=== PATIENT | female | born 1975 | race Caucasian/White ===

== ENCOUNTER 2021-01-13 21:10 | Emergency (ER) | payer OTHER ==
[~2021-01-13] VITALS: Ht 165.1 cm; Wt 72.6 kg
[2021-01-13 21:50] VITALS: BP 134/95
[2021-01-13] MEDS ORDERED: ALBUT2 CONTNEB (22:33)
[2021-01-13] MEDS ORDERED: CETI-90 PO (22:33)
[2021-01-13] MEDS ORDERED: INHA1EAC10 MC (22:33)
--- NOTE | 2021-01-13 22:51 | NUR ---
Patient discharged to home in stable condition. Written and verbal after care instructions given. Patient verbalizes understanding of instruction. Pt ambulatory with a steady gait
== END 2021-01-13 22:52 | disposition home or self-care (01) ==
LOC: ER 21:18
DX: J32.9 Chronic sinusitis, unspecified (principal); R05 Cough; Z88.6 Allergy status to analgesic agent

== ENCOUNTER 2024-03-02 11:42 | Emergency (ER) | payer MEDICAID, OTHER ==
[~2024-03-02] VITALS: Ht 165.1 cm; Wt 73.0 kg
[~2024-03-02 11:42] MED LIST: ALBUT2 CONTNEB; CETI-90 PO; INHA1EAC10 MC
[2024-03-02 12:23] LABS: BASOPHILS % (AUTO) 0.5 % (0.0-2.0); EOSINOPHILS # (AUTO) 0.1 K/uL (0.0-0.7); EOSINOPHILS % (AUTO) 1.1 % (0.0-6.0); HEMATOCRIT 46 % (33-45); HEMOGLOBIN 15.7 g/dL (11.5-14.8); LYMPHOCYTES # (AUTO) 1.5 K/uL (0.8-4.8); LYMPHOCYTES % (AUTO) 23.6 % (20.0-44.0); MEAN CORPUSCULAR HEMOGLOBIN 28 PG (26.0-33.0); MEAN CORPUSCULAR HGB CONC 34 g/dl (31.0-36.0); MEAN CORPUSCULAR VOLUME 84 fL (82-100); MONOCYTES # (AUTO) 0.5 K/uL (0.1-1.30); MONOCYTES % (AUTO) 8.1 % (2.0-12.0); NEUTROPHILS # (AUTO) 4.2 K/uL (1.8-8.9); NEUTROPHILS % (AUTO) 66.7 % (43.0-81.0); PLATELET COUNT (AUTO) 279 K/uL (150-450); RED BLOOD CELL COUNT(AUTO) 5.54 MIL/uL (4.0-5.2); RED CELL DISTRIBUTION WIDTH 12.3 % (11.5-15.0); WHITE BLOOD COUNT (AUTO) 6.3 K/uL (4.3-11.0)
[2024-03-02 12:31] LABS: CALCIUM, SERUM 9.3 mg/dL (8.5-10.1); CREATININE 1.2 mg/dL (0.6-1.3); POTASSIUM 3.6 mmol/L (3.5-5.1)
[2024-03-02] MEDS ORDERED: ONDANSETRON HCL/PF 4 MG/2 ML VIAL ONE (12:31)
[2024-03-02] MEDS ORDERED: KETOROLAC TROMETHAMINE 15 MG/ML VIAL ONE (12:32)
[2024-03-02] MEDS: IV NS 0.9% 1,000 ML BAG IV ONE (12:36)
[2024-03-02 12:37] LABS: ALBUMIN 4.3 g/dL (3.4-5.0); BILIRUBIN,DIRECT 0.2 mg/dL (0.0-0.2); BILIRUBIN,TOTAL 0.9 mg/dL (0.2-1.0); TOTAL PROTEIN, SERUM 8.2 g/dL (6.4-8.2)
[2024-03-02] MEDS: KETOROLAC TROMETHAMINE 15 MG/ML VIAL IV ONE (12:37)
[2024-03-02] MEDS: ONDANSETRON HCL/PF 4 MG/2 ML VIAL IVP ONE (12:38)
[2024-03-02 14:01] LABS: APPEARANCE,URINE Clear (CLEAR); BILIRUBIN,URINE SMALL (NEGATIVE); BLOOD, URINE Trace-intact Ery/uL (NEGATIVE); COLOR,URINE YELLOW (YELLOW); KETONES,URINE 15 mg/dL (NEGATIVE); LEUKOCYTE ESTERASE ,URINE Trace (NEGATIVE); NITRITE, URINE Negative (NEGATIVE); PH,URINE 5.5 (5.0-8.0); PROTEIN,URINE Negative (NEGATIVE); UGLUCOSE Negative (NEGATIVE); UROBILINOGEN,URINE 0.2 EU/dL (0.2)
[2024-03-02 14:04] LABS: PREGNANCY TEST URINE QUAL NEGATIVE (NEGATIVE)
[2024-03-02 14:13] LABS: ADD URINE CULTURE YES; BACTERIA,URINE 1+ /HPF (None Seen); RBC,URINE 0-2 /HPF (0-2)
[2024-03-02 15:35] VITALS: BP 121/69; TEMP 98.4; O2SAT 98
== END 2024-03-02 15:35 | disposition home or self-care (01) ==
LOC: ER 11:56
DX: K76.0 Fatty (change of) liver, not elsewhere classified (principal); R11.2 Nausea with vomiting, unspecified; R19.7 Diarrhea, unspecified; R10.30 Lower abdominal pain, unspecified; Z88.6 Allergy status to analgesic agent
CPT/HCPCS: 99285; 74176; 96374; 96375; 85025; 80048; 87086; 83690; 80076; 84703; 81001; 36415; J2405; J7030; J1885

== ENCOUNTER 2025-02-21 16:25 | Emergency (ER) | payer OTHER ==
[~2025-02-21] VITALS: Ht 165.1 cm; Wt 69.9 kg
[2025-02-21] MEDS ORDERED: ACETAMINOPHEN ES 500 MG TABLET ONE (17:01)
[2025-02-21] MEDS ORDERED: CYCLOBENZAPRINE 10 MG TABLET ONE (17:01)
[2025-02-21] MEDS: ACETAMINOPHEN ES 500 MG TABLET PO ONE (17:04)
[2025-02-21] MEDS: CYCLOBENZAPRINE 10 MG TABLET PO ONE (17:04)
[2025-02-21 17:29] LABS: PLATELET COUNT (AUTO) 263 K/uL (150-450); RED BLOOD CELL COUNT(AUTO) 5.08 MIL/uL (4.0-5.2); RED CELL DISTRIBUTION WIDTH 12.9 % (11.5-15.0); WHITE BLOOD COUNT (AUTO) 8.5 K/uL (4.3-11.0)
[2025-02-21 17:30] LABS: APPEARANCE,URINE CLEAR (CLEAR); BLOOD, URINE NEGATIVE Ery/uL (NEGATIVE); LEUKOCYTE ESTERASE ,URINE NEGATIVE (NEGATIVE); NITRITE, URINE NEGATIVE (NEGATIVE); UGLUCOSE NEGATIVE (NEGATIVE)
[2025-02-21 18:30] LABS: CALCIUM, SERUM 9.2 mg/dL (8.5-10.1); CREATININE 1.0 mg/dL (0.6-1.3); UREA NITROGEN, BLOOD 13.0 mg/dL (7-18)
[2025-02-21 18:34] LABS: ASPARTATE AMINOTRANSFERASE 15.0 U/L (15-37); TOTAL PROTEIN, SERUM 7.6 g/dL (6.4-8.2)
[2025-02-21 18:35] LABS: SODIUM SERUM 138.0 mmol/L (136-145)
[2025-02-21] MEDS ORDERED: CYCL5TAB PO (18:41)
[2025-02-21 18:47] VITALS: BP 132/76; TEMP 98.9; O2SAT 99
== END 2025-02-21 18:47 | disposition home or self-care (01) ==
LOC: ER 16:30
DX: M54.9 Dorsalgia, unspecified (principal); R10.84 Generalized abdominal pain; R10.2 Pelvic and perineal pain; Z88.6 Allergy status to analgesic agent; Z79.899 Other long term (current) drug therapy
CPT/HCPCS: 36415; 80048-TC; 80076-TC; 83690-TC; 84702-TC; 85025-TC; 87086-TC